=== PATIENT | female | born 1995 | race African-American/Black ===

== ENCOUNTER 2016-08-06 06:27 | Inpatient (IN) | payer MEDICAID ==
[~2016-08-06] VITALS: Ht 162.6 cm; Wt 75.5 kg
[2016-08-06] VITALS (37 sets, daily range): BP systolic 90–158; BP diastolic 55–90; PULSE 74–97; TEMP 97.5–98.6
[2016-08-06] MEDS ORDERED: VITAMIN D 1001000 IU PO (08:04)
[2016-08-06] MEDS ORDERED: FERROUS SULFATE65 MG PO (08:04)
[2016-08-06] MEDS ORDERED: PRENATAL (08:04)
[2016-08-06] MEDS ORDERED: OSCAL 500 TAB500 MG (08:05)
[2016-08-06 09:02] LABS: BASO % 0.1 % (0.0-2.0); EOS # 0.1 (0.0-0.7); EOS % 1.6 % (0-4.0); GRAN # 4.2 (1.4-6.5); GRAN % 57.4 % (42.2-75.2); HEMATOCRIT 31.6 % (37.0-47.0); HEMOGLOBIN 10.7 g/dl (12.5-16.0); LYMPH # 2.5 (1.2-3.4); LYMPH % 33.6 % (20.0-51.0); MEAN CELL VOLUME 95 fl (80.0-100.0); MEAN CORPUSCULAR HEMOGLOBIN 32 pg (27.0-31.0); MEAN CORPUSCULAR HGB CONC 34 g/dl (33.0-37.0); MONO # 0.5 (0.1-0.6); MONO % 6.3 % (1.7-9.3); PLATELET COUNT 274 K/mm3 (130-400); RED BLOOD COUNT 3.34 M/mm3 (4.10-5.30); WHITE BLOOD COUNT 7.4 K/mm3 (4.8-10.8)
== END 2016-08-06 23:15 | disposition home or self-care (01) | DRG 775 ==
LOC: LDR 06:27 → OB 19:30
PROVIDERS: Student in an Organized Health Care Education/Training Program
PROC: 10E0XZZ Delivery of Products of Conception, External Approach (ICD-10-PCS; principal; 2016-08-06)
PROC: 3E033VJ Introduction of Other Hormone into Peripheral Vein, Percutaneous Approach (ICD-10-PCS; 2016-08-06)
DX: O48.0 Post-term pregnancy (principal); O35.8XX0 Maternal care for other (suspected) fetal abnormality and damage, not applicable or unspecified; O99.284 Endocrine, nutritional and metabolic diseases complicating childbirth; E55.9 Vitamin D deficiency, unspecified; Z3A.40 40 weeks gestation of pregnancy; Z37.0 Single live birth
CPT/HCPCS: J2590; J7120